=== PATIENT | male | born 1945 | race Caucasian/White ===

== ENCOUNTER 2016-09-21 14:58 | Inpatient (IN) | payer MEDICARE ==
[2016-09-21] MEDS ORDERED: methylPREDNISolone SOD SUCC* 125 MG 2 ML VIAL IV ONE (16:51)
[2016-09-21] MEDS: Albuterol/Ipratropium NEB.SOL* Albuterol 2.5 MG/Ipratropium 0.5 MG 3 ML INH SCH ×3 (17:18→18:05)
[2016-09-21 17:27] LABS: Hematocrit 19 % (42-52); Mean Corpuscular HGB Conc 30 g/dl (31-36); Mean Corpuscular Hemoglobin 22 pg (27-31); Mean Corpuscular Volume 74 fL (80-94); Mean Platelet Volume 7 um3 (7.4-10.4); Red Blood Count 2.53 10^6/ul (4.0-5.4); Red Cell Distribution Width 18 % (10.5-15); White Blood Count 13.7 10^3/ul (3.5-10.8)
[2016-09-21 17:32] LABS: Add Diff/Slide Review? Slide Review Added; Comments Flag Yes
[2016-09-21 17:34] LABS: Hemoglobin 5.6 g/dl (14.0-18.0)
[2016-09-21 17:48] LABS: Albumin 3.1 g/dL (3.2-5.2); BUN/Creatinine Ratio 28.7 (8-20); C Reactive Protein 4.56 mg/L (< 5.00); Calcium 8.8 mg/dL (8.6-10.3); EGFR African American 101.5 (>60); EGFR Non-African American 78.9 (>60); Globulin 4.7 g/dL (2-4); Potassium 4.6 mmol/L (3.5-5.0); Total Bilirubin 0.4 mg/dL (0.2-1.0); Total Protein 7.8 g/dL (6.4-8.9)
[2016-09-21 17:49] LABS: Hypochromasia 3+; Macrocytosis 1+; Microcytosis 1+; Polychromasia 1+
[2016-09-21 17:53] LABS: Troponin I 0.1 ng/mL (<0.04)
--- NOTE | 2016-09-21 18:28 | RAD ---
INDICATION: Dyspnea. COPD on home oxygen. COMPARISON: May 17, 2016 TECHNIQUE: Dual energy PA and routine lateral views of the chest were obtained. REPORT: Elevated lung volumes and moderately coarse interstitial markings as well as peripheral and upper lung zone rarefaction. Peripheral thickened intralobular septa bilaterally. Asymmetric alveolar and interstitial opacity at the RIGHT lung base without volume loss. Small pleural effusions. Negative for pneumothorax. Negative for cardiomegaly. Mildly prominent and ill-defined central pulmonary vasculature. IMPRESSION: The constellation of findings is most suggestive of mildly asymmetric interstitial pulmonary edema superimposed on chronic obstructive pulmonary disease. Inflammatory infiltrate at the RIGHT lung base is not excluded.
[2016-09-21] MEDS ORDERED: Acetaminophen TAB* 325 MG PO PRN (18:53)
[2016-09-21] MEDS ORDERED: Acetaminophen TAB* 325 MG PO ONE (18:56)
[2016-09-21] MEDS ORDERED: Acetaminophen TAB* 325 MG ONE (18:59)
[2016-09-21] MEDS ORDERED: Furosemide IV* 10 MG/ML 10 ML VIAL (100 MG) IV SCH (19:22)
[2016-09-21] MEDS ORDERED: Pantoprazole IV* 40 MG IV ONE (19:30)
[2016-09-21 19:41] LABS: Urine Bilirubin Negative (Negative); Urine Glucose Negative (Negative); Urine Nitrite Negative (Negative)
[2016-09-21] MEDS ORDERED: Furosemide IV* 10 MG/ML 2 ML VIAL (20 MG) IV SCH (20:12)
--- NOTE | 2016-09-21 20:24 | ED ---
Pardeep Munoz Adam, scribed for Uri Angulo MD on 09/21/16 at 1701 . Shortness of Breath - HPI Summary HPI Summary: Pt is a 71 year old male presenting with SOB for the past 2 days. He has COPD and is on o2 at home. He also reports a productive cough bringing up phlegm, as well as chills. He denies any CP or edema. Additional PMHx of HTN, DM, and DVT. Surgical Hx of appy and intestinal resection. FMHx of DM. - History of Current Complaint Chief Complaint: EDShortnessOfBreath Time Seen by Provider: 09/21/16 16:51 Hx Obtained From: Patient Onset/Duration: Gradual Onset, Lasting Days, Still Present Timing: Constant Current Severity: Moderate Dyspnea At: Rest Aggrevating Factors: Nothing Alleviating Factors: Nothing Associated Signs & Symptoms: Cough (Productive), Wheezing, Chills - Allergy/Home Medications Allergies/Adverse Reactions: Allergies Allergy/AdvReac Type Severity Reaction Status Date / Time No Known Allergies Allergy Verified 05/17/16 18:43 PMH/Surg Hx/FS Hx/Imm Hx Endocrine/Hematology History: Reports: Hx Diabetes - glucose between 100-130 Denies: Hx Anticoagulant Therapy Cardiovascular History: Reports: Hx Deep Vein Thrombosis - 20 years ago, Hx Hypertension - lisinopril Denies: Hx Congestive Heart Failure, Hx Myocardial Infarction, Hx Pacemaker/ ICD Respiratory History: Reports: Hx Chronic Obstructive Pulmonary Disease (COPD), Hx Pneumonia GI History: Denies: Hx Gastroesophageal Reflux Disease History: Denies: Hx Acute Renal Failure, Hx Chronic Renal Failure Musculoskeletal History: Reports: Hx Arthritis, Hx Back Problems Sensory History: Reports: Hx Contacts or Glasses Opthamlomology History: Reports: Hx Contacts or Glasses Neurological History: Denies: Hx Headaches Psychiatric History: Reports: Other Psychiatric Issues/Disorders - sometimes feels anxious/depressed - no formal dx - Surgical History Surgery Procedure, Year, and Place: Appendectomy (2011). Intestinal resection ( 2011) Infectious Disease History: No Infectious Disease History: Denies: Hx Hepatitis, Hx Human Immunodeficiency Virus (HIV), Hx of Known/ Suspected MRSA, Traveled Outside the [place] in Last 30 Days - Family History Known Family History: Positive: Diabetes - Social History Occupation: Retired Lives: With Family - Alcohol Use: None Hx Substance Use: No Substance Use Type: Reports: None Hx Tobacco Use: Yes Smoking Status (MU): Former Smoker Type: Cigarettes Amount Used/How Often: 3 PPD Have You Smoked in the Last Year: Yes Review of Systems Positive: Chills Negative: Chest Pain Positive: Shortness Of Breath, Cough Negative: Edema All Other Systems Reviewed And Are Negative: Yes Physical Exam - Summary Physical Exam Summary: VITAL SIGNS: Reviewed. GENERAL: Patient is a well developed and nourished who is lying comfortable in the stretcher. Patient is not in any acute respiratory distress. HEAD AND FACE: No signs of trauma. No ecchymosis, hematomas or skull depressions. No sinus tenderness. EYES: PERRLA, EOMI x 2, No injected conjunctiva, no nystagmus. EARS: Hearing grossly intact. Ear canals and tympanic membranes are within normal limits. MOUTH: Oropharynx within normal limits. NECK: Supple, trachea is midline, no adenopathy, no JVD, no carotid bruit, no c- spine tenderness, neck with full ROM. CHEST: Symmetric, no tenderness at palpation LUNGS: Coarse breath sounds. No crackles CVS: Regular rate and rhythm, S1 and S2 present, positive ESM 4/6 ABDOMEN: Soft, non-tender. No signs of distention. No rebound no guarding, and no masses palpated. Bowel sounds are normal. Rectal exam with normal sphincter tone, no melena or gross blood. EXTREMITIES: FROM in all major joints, no edema, no cyanosis or clubbing. NEURO: Alert and oriented x 3. No acute neurological deficits. Speech is normal and follows commands. SKIN: Dry and warm Triage Information Reviewed: Yes Vital Signs On Initial Exam: Initial Vitals Temp Pulse Resp BP Pulse Ox 98.9 F 105 20 111/48 100 09/21/16 15:00 09/21/16 15:00 09/21/16 15:00 09/21/16 15:00 09/21/16 15:00 Vital Signs Reviewed: Yes Diagnostics - Vital Signs Vital Signs Temp Pulse Resp BP Pulse Ox 09/21/16 16:33 99 22 99 09/21/16 16:31 141/75 09/21/16 16:00 98.9 F 94 20 102/48 97 09/21/16 15:00 98.9 F 105 20 111/48 100 - Laboratory Lab Results: Lab Results 09/21/16 09/21/1609/21/17 Range/Units 17:14 17:14 17:14 WBC 13.7 H (3.5-10.8) 10^3/ul RBC 2.53 L (4.0-5.4) 10^6/ul Hgb 5.6 L* (14.0-18.0) g/dl Hct 19 L (42-52) % MCV 74 L (80-94) fL MCH 22 L (27-31) pg MCHC 30 L (31-36) g/dl RDW 18 H (10.5-15) % Plt Count 479 H (150-450) 10^3/ul MPV 7 L (7.4-10.4) um3 Neut % (Auto) 69.3 (38-83) % Lymph % (Auto) 17.3 L (25-47) % Avery % (Auto) 11.7 H (1-9) % Eos % (Auto) 1.3 (0-6) % Baso % (Auto) 0.4 (0-2) % Absolute Neuts (auto) 9.5 H (1.5-7.7) 10^3/ul Absolute Lymphs (auto) 2.4 (1.0-4.8) 10^3/ul Absolute Monos (auto) 1.6 H (0-0.8) 10^3/ul Absolute Eos (auto) 0.2 (0-0.6) 10^3/ul Absolute Basos (auto) 0.1 (0-0.2) 10^3/ul Absolute Nucleated RBC 0.02 10^3/ul Nucleated RBC % 0.1 Normal RBC Morphology Not Reportable Polychromasia 1+ Hypochromasia 3+ Microcytosis 1+ Macrocytosis 1+ INR (Anticoag Therapy) (0.89-1.11) APTT (26.0-36.3) seconds Sodium 132 L (133-145) mmol/L Potassium 4.6 (3.5-5.0) mmol/L Chloride 101 (101-111) mmol/L Carbon Dioxide 25 (22-32) mmol/L Anion Gap 6 (2-11) mmol/L BUN 27 H (6-24) mg/dL Creatinine 0.94 (0.67-1.17) mg/dL Est GFR ( Amer) 101.5 (>60) Est GFR (Non-Af Amer) 78.9 (>60) BUN/Creatinine Ratio 28.7 H (8-20) Glucose 161 H (70-100) mg/dL Lactic Acid 1.7 (0.5-2.0) mmol/L Calcium 8.8 (8.6-10.3) mg/dL Total Bilirubin 0.40 (0.2-1.0) mg/dL AST 18 (13-39) U/L ALT 16 (7-52) U/L Alkaline Phosphatase 59 (34-104) U/L Total Creatine Kinase 57 (10-223) U/L Troponin I Pending C-Reactive Protein 4.56 (< 5.00) mg/L Total Protein 7.8 (6.4-8.9) g/dL Albumin 3.1 L (3.2-5.2) g/dL Globulin 4.7 H (2-4) g/dL Albumin/Globulin Ratio 0.7 L (1-3) 09/21/16 Range/Units 17:14 WBC (3.5-10.8) 10^3/ul RBC (4.0-5.4) 10^6/ul Hgb (14.0-18.0) g/dl Hct (42-52) % MCV (80-94) fL MCH (27-31) pg MCHC (31-36) g/dl RDW (10.5-15) % Plt Count (150-450) 10^3/ul MPV (7.4-10.4) um3 Neut % (Auto) (38-83) % Lymph % (Auto) (25-47) % Avery % (Auto) (1-9) % Eos % (Auto) (0-6) % Baso % (Auto) (0-2) % Absolute Neuts (auto) (1.5-7.7) 10^3/ul Absolute Lymphs (auto) (1.0-4.8) 10^3/ul Absolute Monos (auto) (0-0.8) 10^3/ul Absolute Eos (auto) (0-0.6) 10^3/ul Absolute Basos (auto) (0-0.2) 10^3/ul Absolute Nucleated RBC 10^3/ul Nucleated RBC % Normal RBC Morphology Polychromasia Hypochromasia Microcytosis Macrocytosis INR (Anticoag Therapy) 0.98 (0.89-1.11) APTT 26.7 (26.0-36.3) seconds Sodium (133-145) mmol/L Potassium (3.5-5.0) mmol/L Chloride (101-111) mmol/L Carbon Dioxide (22-32) mmol/L Anion Gap (2-11) mmol/L BUN (6-24) mg/dL Creatinine (0.67-1.17) mg/dL Est GFR ( Amer) (>60) Est GFR (Non-Af Amer) (>60) BUN/Creatinine Ratio (8-20) Glucose (70-100) mg/dL Lactic Acid (0.5-2.0) mmol/L Calcium (8.6-10.3) mg/dL Total Bilirubin (0.2-1.0) mg/dL AST (13-39) U/L ALT (7-52) U/L Alkaline Phosphatase (34-104) U/L Total Creatine Kinase (10-223) U/L Troponin I C-Reactive Protein (< 5.00) mg/L Total Protein (6.4-8.9) g/dL Albumin (3.2-5.2) g/dL Globulin (2-4) g/dL Albumin/Globulin Ratio (1-3) Result Diagrams: 09/21/16 17:14 09/21/16 17:14 Lab Statement: Any lab studies that have been ordered have been reviewed, and results considered in the medical decision making process. - Radiology CXR Radiology Interpretation Completed By: Radiologist - IMPRESSION: The constellation of findings is most suggestive of mildly asymmetric interstitial pulmonary edema superimposed on chronic obstructive pulmonary disease. Inflammatory infiltrate at the RIGHT lung base is not excluded. - EKG 15:05 Cardiac Rate: NL - 99 BPM EKG Rhythm: Sinus Rhythm EKG Interpretation: No ST elevations - Additional Comments Diagnostic Additional Comments: Hemoglobin - 5.6 Troponin I - 0.10 Antibody Screen - Negative Course/Dx - Course Course Of Treatment: Pt is a 71 year old male presenting with SOB for the past 2 days. He has COPD and is on o2 at home. He also reports a productive cough bringing up phlegm, as well as chills. He denies any CP or edema. Additional PMHx of HTN, DM, and DVT. Surgical Hx of appy and intestinal resection. FMHx of DM. BW is WNL except for WBC of 13.7, Hgb of 5.6, Hct of 19, and platelets of 479. Sodium is 132, glucose 161, trop 0.10, BNP 345. EKG shows a sinus rhythm without ST elevations. CXR shows bilateral hyperinflation of the lungs without infiltrates. In the ED course the pt was given a duoneb given that he was slightly wheezy secondary to COPD. Seeing as the pt has symptomatic anemia I performed a rectal exam which showed no melena and no red blood from the rectum. Pt will be given 2 units of blood. He continues to be hemodynamically stable and A&Ox3. I discussed my physical exam and findings with Dr. Cole. The pt will be admitted to the hospitalist services. Assessment/Plan: Guaiac positive. - Diagnoses Differential Diagnosis/HQI/PQRI: Positive: Bronchitis, CHF, Pneumonia, Other - Anemia Provider Diagnoses: Symptomatic anemia, COPD (chronic obstructive pulmonary disease), GI bleed - Physician Notifications Discussed Care of Patient With: Dr. Cole at 18:12. Patient will be admitted. Discharge - Discharge Plan Condition: Stable Disposition: ADMITTED TO [facility] The documentation as recorded by the Pardeep gregory Adam accurately reflects the service I personally performed and the decisions made by me, Uri Angulo MD.
[2016-09-21] MEDS ORDERED: Insulin GLARGINE(*) 1 UNITS UNIT SUBCUT SCH (21:00)
[2016-09-21 21:03] LABS: Hematocrit 19 % (42-52); Mean Corpuscular HGB Conc 30 g/dl (31-36); Mean Corpuscular Hemoglobin 23 pg (27-31); Mean Corpuscular Volume 74 fL (80-94); Mean Platelet Volume 7 um3 (7.4-10.4); Red Blood Count 2.51 10^6/ul (4.0-5.4); Red Cell Distribution Width 17 % (10.5-15); White Blood Count 11.5 10^3/ul (3.5-10.8)
[2016-09-21 21:05] LABS: Add Diff/Slide Review? Slide Review Added; Comments Flag Yes
[2016-09-21 21:06] LABS: Hemoglobin 5.7 g/dl (14.0-18.0)
[2016-09-21] MEDS ORDERED: Pantoprazole IV* 40 MG ONE (21:25)
[2016-09-21] MEDS ORDERED: Dextrose 50% Syringe 50 ML* 25 GM/50 ML SYRINGE IV PUSH PRN (21:28)
--- NOTE | 2016-09-21 21:44 | HP ---
ADMISSION HISTORY AND PHYSICAL: DATE OF ADMISSION: 09/21/16 PRIMARY CARE PROVIDER: [place] in [place]; LEONOR Ribera ADMITTING PROVIDER: LEONOR Watters SUPERVISING PHYSICIAN: Dr. Rojas Cole* (dictated by LEONOR Watters). CONSULTING UROLOGIST PHYSICIAN: Dr. Donald Glover. CHIEF COMPLAINT: Shortness of breath. HISTORY OF PRESENT ILLNESS: This is a 71-year-old gentleman with a history of COPD as well as insulin dependent diabetes, peripheral vascular disease, GERD, and hypertension who presented to the emergency department with complaints of shortness of breath. He has had a recent cold. He was blaming his symptoms on his URI. He has had an occasional cough. He has been using his albuterol inhaler frequently, but this has not been relieving his feelings of shortness of breath. He has been afebrile at home and denies any associated abdominal pain, nausea, or vomiting. Denies melena or hematochezia. The patient was admitted in March of this past year with similar symptoms. He was complaining of melena at that time and had been taking frequent NSAIDs. Hemoglobin was 5.5 at the time of admission and he was subsequently admitted with a GI bleed. He was transfused 2 units of packed red blood cells and EGD showed multiple erosions at that time. The patient is unable to give a clear history as to whether he has been reliably taking PPI since that admission, but does state that he has not been using any NSAIDs. The patient was noted to be grossly anemic in the emergency department with a hemoglobin of 5.6. Rectal exam performed by emergency department provider did not demonstrate any gross melena, but stool is positive for occult blood. Hospitalist group subsequently requested to admit. PAST MEDICAL HISTORY: 1. Insulin dependent diabetes. 2. Peripheral vascular disease. 3. Hypertension. 4. COPD. 5. GERD. PAST SURGICAL HISTORY: Bowel resection for what sounds like an ischemic bowel, but the patient is unclear. HOME MEDICATIONS: The patient is unable to provide an accurate list of medications, but states that the medications on a file from March should still be accurate and are as follows: 1. Albuterol inhaler 1 puff inhaled q.4 hours as needed for shortness of breath. 2. Vitamin C 500 mg p.o. daily. 3. Folic acid 1 mg p.o. daily. 4. Lasix 20 mg p.o. daily. 5. Lantus 10 units subcu nightly. 6. Victoza 0.6 mg subcu daily. 7. Lisinopril 5 mg p.o. daily. 8. Omeprazole 20 mg p.o. daily. 9. Actos 45 mg p.o. daily. 10. Potassium chloride 20 mEq p.o. daily. 11. Spiriva 1 capsule inhaled daily. 12. Tramadol 50 mg p.o. daily. 13. Glipizide 10 mg p.o. b.i.d. SOCIAL HISTORY: The patient has a greater than a 100 pack year smoking history , quit about a year ago. Denies any regular alcohol consumption. Lives at home with his and is retired. REVIEW OF SYSTEMS: As noted above in the HPI and otherwise negative. PHYSICAL EXAMINATION GENERAL: This is an elderly gentleman, in no acute distress accompanied by his . He provides a limited history. VITAL SIGNS: Temperature 98.9 degrees Fahrenheit, pulse 105 beats per minute, respiratory rate 20 per minute, oxygen saturation 100% on room air, blood pressure 111/48 mmHg. HEENT: Head is normocephalic, atraumatic. Moist mucous membranes. RESPIRATORY: Lungs are clear to auscultation. There is reduced breath sounds appreciated in all lung green but no rhonchi or wheezing. CARDIOVASCULAR: Heart has a regular rate and rhythm. There is a faint murmur appreciated but sounds consistent with perhaps aortic stenosis. ABDOMEN: Soft and nontender to palpation. EXTREMITIES: No lower extremity edema. SKIN: Limited exam shows no concerning rashes or lesions. PSYCHE: The patient is alert and appropriately oriented. DIAGNOSTIC STUDIES/LABORATORY DATA: CBC shows a white blood cell count of 13, 700, hemoglobin of 5.6 g/dL and an MCV of 74 with a platelet count of 479,000. INR of 0.98, PTT of 26.7. Comprehensive metabolic panel shows a sodium of 132 mmol/L, potassium 4.6, BUN of 27, creatinine of 0.94. Random glucose of 161 mg/dL. Lactic acid normal at 1.7. Troponin elevated at 0.1. BNP slightly elevated at 345. IMAGING: Chest x-ray shows stigmata of COPD, questionable right basilar infiltrates. EKG shows a normal sinus rhythm without ischemic changes. ASSESSMENT AND PLAN: This is a 71-year-old gentleman with history of prior gastrointestinal bleed who presents with shortness of breath with severe anemia that appears to be subacute in nature. He also has history of chronic obstructive pulmonary disease, peripheral vascular disease, insulin dependent diabetes, hypertension, and gastroesophageal reflux disease. The patient will be subsequently admitted to the hospital for suspected GI bleed. 1. GI bleed - based on his MCV and relatively few symptoms with severe anemia suspect that this is potentially chronic or subacute in nature. Perhaps, the patient has been continuing to bleed since his last admission in March. We will plan to transfuse 2 units of packed red blood cells at this time. We will diurese with Lasix between and after units. We will check serial hemoglobins overnight. Contacted information systems manager, Dr. Glover, who will plan on repeating EGD tomorrow which will probably be tomorrow afternoon. We will continue clear liquids at this time. Plan on making him NPO after breakfast. 2. Elevated troponin. Assume this is demand related to his severe anemia. We will trend troponins. He has no ischemic changes noted on EKG. He is not complaining of any chest pain at this time. No known history of coronary artery disease, but does have a history of peripheral vascular disease. 3. Chronic obstructive pulmonary disease - no evidence of acute exacerbation. We will continue with typical inhaled medications. 4. Hypertension. We will hold home antihypertensives at this time in the setting of GI bleed. 5. Insulin dependent diabetes - we will continue typical Lantus, cover for additional hyperglycemia with sliding scale Humalog. 6. Code status. The patient is DNR/DNI. He has signed a MOLST form from September of last year. 7. Surrogate decision maker is his . 8. DVT prophylaxis. We will place on SCDs. Chemical prophylaxis is contraindicated in this setting of bleeding. LEONOR WATTERS CC: IRINA Rangel; LEONOR Ribera* [id number]/[facility] #: [id number] MTDD
[2016-09-21] MEDS: Pantoprazole IV* 80 MG in NS 0.9% 250 ML* 250 ML IVPB SCH (22:06)
[2016-09-21] MEDS ORDERED: Furosemide IV* 10 MG/ML 10 ML VIAL (100 MG) IV ONE (22:58)
[2016-09-21] MEDS ORDERED: Nitroglycerin 2% OINT* 1 GM PAK TOPICAL ONE (22:59)
[2016-09-21] MEDS ORDERED: Morphine INJ* 2 MG/ML 1 ML SYRINGE IV ONE (22:59)
[2016-09-21] MEDS ORDERED: Furosemide IV* 10 MG/ML VIAL (40 MG) ONE (23:01)
[2016-09-21] MEDS ORDERED: Morphine INJ* 2 MG/ML 1 ML SYRINGE ONE (23:01)
[2016-09-21] MEDS ORDERED: Nitroglycerin 2% OINT* 1 GM PAK ONE (23:03)
--- NOTE | 2016-09-21 23:10 | PN ---
Progress Note - Progress Note Note: Nursing reports sudden onset of SOB at end of 1st unit pRBCs. Has not yet received furosemide 20mg IV as ordered. Upon arrival, Mr Kent is sitting up in bed with respiratory rate in the mid- to high 20s, saO2 mid-90s. He denies chest pain, sweats, palpitations, light- headedness, or other issues. gen: elderly white male in mild respiratory distress, AA&O to PPS Lungs: mild bibasilar cellophane crackles, mild use of accessory muscles CV: RRR abdomen: SNTND assessment: plan acute volume overload 2nd blood transfusion : 1" nitropaste : 2mg morphine x1 now : 40mg IV furosemide x1 now replacing existing order for 20mg : close monitoring of respiratory status & blood pressure requested of nursing
[2016-09-22] MEDS ORDERED: LORazepam INJ* 2 MG/ML 1 ML VIAL ONE
[2016-09-22] MEDS: Insulin LISPRO* 1 UNITS UNIT SUBCUT SCH ×4 (00:35→17:42)
[2016-09-22 01:36] LABS: Hematocrit 24 % (42-52); Hemoglobin 7.4 g/dl (14.0-18.0); Mean Corpuscular HGB Conc 31 g/dl (31-36); Mean Corpuscular Hemoglobin 23 pg (27-31); Mean Corpuscular Volume 75 fL (80-94); Mean Platelet Volume 7 um3 (7.4-10.4); Red Blood Count 3.22 10^6/ul (4.0-5.4); Red Cell Distribution Width 18 % (10.5-15)
[2016-09-22] MEDS ORDERED: Furosemide IV* 10 MG/ML VIAL (40 MG) IV ONE (02:00)
[2016-09-22] MEDS: Pantoprazole IV* 80 MG in NS 0.9% 250 ML* 250 ML IVPB SCH (05:41)
[2016-09-22 07:22] LABS: Hematocrit 26 % (42-52); Hemoglobin 8.2 g/dl (14.0-18.0); Mean Corpuscular HGB Conc 32 g/dl (31-36); Mean Corpuscular Hemoglobin 24 pg (27-31); Mean Corpuscular Volume 76 fL (80-94); Mean Platelet Volume 7 um3 (7.4-10.4); Red Blood Count 3.45 10^6/ul (4.0-5.4); Red Cell Distribution Width 17 % (10.5-15); White Blood Count 12.6 10^3/ul (3.5-10.8)
[2016-09-22 07:43] LABS: BUN/Creatinine Ratio 27.7 (8-20); EGFR African American 101.5 (>60); EGFR Non-African American 78.9 (>60); Potassium 4.6 mmol/L (3.5-5.0)
[2016-09-22] MEDS ORDERED: Spiriva Inhaler DEVICE* 1 EACH DEVICE INH ONE (09:00)
[2016-09-22] MEDS ORDERED: Tiotropium CAP.INH* CAP.INH/18 MCG INH SCH (09:00)
--- NOTE | 2016-09-22 11:41 | PN ---
Subjective Date of Service: 09/22/16 Interval History: This is a 71 yo gentleman with a h/o COPD who presented yesterday with c/o SOB. Hgb 5.5 at admission, stool positive for occult blood. Patient was transfused 2U PRBCs overnight. He had flash pulm edema after the 1st unit, treated with nitro, Lasix and morphine and it resolved quickly. He tolerated the 2nd unit well. He reports that he is feeling well this am. His dyspnea has resolves and he very much would like to be discharged home. He denies abdominal pain, n/v, melena, hematachezia. Objective Active Medications: Acetaminophen (Tylenol Tab*) 650 mg PO Q4H PRN PRN Reason: FEVER/PAIN Dextrose (D50w Syringe 50 Ml*) 12.5 gm IV PUSH .FOR FS < 60 - SS PRN PRN Reason: FS < 60 Pantoprazole Sodium 80 mg/ (Sodium Chloride) 250 mls @ 25 mls/hr IVPB Q10H RAMEZ PRN Reason: Protocol Insulin Glargine (Lantus(*)) 10 units SUBCUT BEDTIME [facility] Last Admin: 09/21/16 21:44 Dose: 10 unit Insulin Human Lispro (Humalog*) 0 - 5 units SUBCUT ACHS RAMEZ PRN Reason: Protocol Last Admin: 09/22/16 08:20 Dose: Not Given Tiotropium [place] (Spiriva Cap.Inh*) 1 cap INH DAILY [facility] Last Admin: 09/22/16 09:22 Dose: 1 cap.inh Vital Signs: Temp Pulse Resp BP Pulse Ox 97.2 F 77 18 125/56 100 09/22/16 07:11 09/22/16 07:11 09/22/16 07:11 09/22/16 07:11 09/22/16 07:11 Oxygen Devices in Use Now: Nasal Cannula Appearance: Elderly gentleman in NAD Neck: NL Appearance and Movements; NL JVP Respiratory: Symmetrical Chest Expansion and Respiratory Effort, Clear to Auscultation Cardiovascular: NL Sounds; No Murmurs; No JVD, RRR Abdominal: NL Sounds; No Tenderness; No Distention Extremities: No Edema Skin: No Rash or Ulcers Neurological: Alert and Oriented x 3 Result Diagrams: 09/22/16 07:01 09/22/16 06:56 Additional Lab and Data: Laboratory Tests 09/21/16 09/21/16 09/22/16 17:14 20:55 01:27 Hgb 5.6 L* 5.7 L* 7.4 L 09/22/16 07:01 Hgb 8.2 L Assess/Plan/Problems-Billing Assessment: This is a 71 yo gentleman is COPD, IDDM, PVD, GERD, HTN and a h/o of prior GI bleed Mar 2016 who presented with c/o SOB with Hgb 5.5 g/dl with heme positive stool. Admitted for GI bleed. - Patient Problems (1) GI bleed Comment: With symptomatic anemia Patient transfused 2U PRBCs overnight with appropriate response in Hgb No c/o melena or hematachezia Pending EGD with Dr Glover this afternoon Suspect bleeding has been slow based on low MCV and the relatively few symptoms he had with profound anemia Continue Protonix (2) Pulmonary edema Comment: Resolved After 1st unit of PRBCs (3) Demand ischemia Comment: Secondary to anemia No evidence of ACS (4) COPD (chronic obstructive pulmonary disease) Comment: No acute exacerbation (5) PVD (peripheral vascular disease) (6) Hypertension Comment: Normotensive Antihypertensives being held in the setting of acute GI bleed (7) Type 2 diabetes mellitus Comment: Relatively well controlled Cont Lantus and SS Humalog Status and Disposition: Pending EGD for this afternoon. Patient is threatening to leave AMA at this time. Disposition will depend on EGD results.
--- NOTE | 2016-09-22 12:30 | CONS ---
CONSULTATION REPORT: DATE OF CONSULT: 09/22/16 REASON FOR CONSULTATION: GI bleed, anemia, history of gastric erosions. NARRATIVE: Mr. Kent is a 71-year-old gentleman with a history of COPD, peripheral vascular disease and hypertension. He presented with shortness of breath and fatigue yesterday and was found to have a hemoglobin of 5.5. He does not report any visible rectal bleeding or melena, but on evaluation was found to be guaiac positive. The patient was previously admitted in the fall of 2016 for GI bleed and a similar presentation and a low hemoglobin. He at that time was using NSAIDs. He underwent an upper endoscopy, which showed multiple gastric erosions which were felt to be the etiology for his bleeding. He was told not to take NSAIDs and to take omeprazole and currently he states he has not been taking NSAIDs, but is a bit vague whether he has been on omeprazole. He also admits to about a 20 to 30-pound weight loss in the last year. He believes he had a colonoscopy many years ago and was told everything was normal. PAST MEDICAL HISTORY: Does include diabetes, peripheral vascular disease, hypertension, COPD, and GERD. SOCIAL HISTORY: He is a former cigarette smoker. PAST SURGICAL HISTORY: Includes bowel resection many years ago. He is a bit vague about it, but it sounds as though he might have had a vascular event. We do not have records of that. FAMILY HISTORY: Negative for any known GI malignancies, although he states that his father from complications from anemia, but is unclear as to the etiology. MEDICATIONS: His outpatient medications as far as we know include: 1. Albuterol inhaler. 2. Lasix. 3. Lantus. 4. Victoza. 5. Lisinopril. 6. Omeprazole (the patient unclear if he is on this). 7. Actos. 8. Potassium. 9. Spiriva. 10. Tramadol. 11. Glipizide. REVIEW OF SYSTEMS: He denies any nausea, vomiting, hematemesis, back pain. PHYSICAL EXAM: He is an elderly gentleman, breathing comfortably and in no acute distress. His temperature is 98.1, blood pressure is 115/50, heart rate is 85 and regular. He seems slightly pale. Lungs sound clear anteriorly. Cardiac exam reveals a regular rhythm without murmur. Abdomen is soft without tenderness or organomegaly. LABORATORY DATA: Initial data include a hemoglobin of 5.6. After 2 units of packed red blood cells, it is 8.2; MCV of 76, BUN on admission of 26; creatinine of 0.94. IMPRESSION AND PLAN: A 71-year-old gentleman presenting with microcytic anemia and guaiac-positive stool. He was previously admitted with similar complaints in the fall, at which time gastric erosions were identified, thought to be related to NSAIDs, which he has not been on, although it is unclear whether he has been compliant on his omeprazole. Possible causes for GI bleeding would include recurrence of the gastric erosions or lower GI causes such as polyps, malignancies, AVMs. This was carefully discussed with the patient. I would advocate an upper endoscopy today and will plan on performing that. I would also strongly suggest a colonoscopy either during this admission or soon after discharge and that was stressed with the patient. He became very agitated, stating that he wants to be discharged as soon as possible and is not willing to stay for a colonoscopy even after discussing the fact that colon cancer could present in this fashion. Hopefully, he will follow up as an outpatient and I did stress that. CC: LEONOR Ribera, [place], [place]* [id number]/CPS #: [id number] MTDD
[2016-09-22] MEDS ORDERED: Pantoprazole IV* 80 MG in NS 0.9% 250 ML* 250 ML IVPB SCH (13:00)
[2016-09-22 15:19] LABS: Hematocrit 25 % (42-52); Hemoglobin 7.7 g/dl (14.0-18.0)
[2016-09-22] MEDS ORDERED: Midazolam* 1 MG/ML 10 ML VIAL (10 MG) ONE (16:04)
[2016-09-22] MEDS ORDERED: fentaNYL* 50 MCG/ML 2 ML VIAL (100 MCG VIAL) ONE (16:04)
[2016-09-22 17:41] VITALS: BP 116/54
--- NOTE | 2016-09-23 12:23 | PRO ---
DATE OF PROCEDURE: 09/22/16 - ROOM #434 PROCEDURE: Gastroscopy. MEDICINES USED: Versed 6 mg IV and fentanyl 50 mcg IV. NARRATIVE: This is a 71-year-old gentleman who was admitted yesterday for blood in the stool and anemia. The patient was feeling shortness of breath and somewhat weak. He presented to the emergency room where he was found to be anemic. He was also guaiac positive. He had a similar presentation in the fall of 2015 where an upper endoscopy demonstrated gastric erosions. He has been off of NSAIDs, which was thought to be the etiology for that. Due to these issues, upper endoscopy is being carried out. PROCEDURE IN DETAIL: After the procedure was discussed with the patient, risks and benefits were outlined, written consent was obtained. The patient was placed in the left lateral decubitus position and conscious sedation was administered. A video diagnostic gastroscope was inserted orally and advanced very carefully into the esophagus. The esophagus, stomach, and duodenum to the second to third portion were well visualized. The patient tolerated the procedure well and there were no immediate complications. FINDINGS: The esophagus was normal. There was no evidence of erosive change or stricture. The stomach was entered. Upon retroflexion, there was no evidence of a hiatal hernia. The gastric mucosa was normal without any ulceration or inflammatory change. The pylorus was normal and patent. The duodenal bulb was normal and second to third portion of the duodenum was normal with a normal folding pattern. CONCLUSION: Normal upper endoscopy. RECOMMENDATION: The patient certainly would need a colonoscopy and that was emphasized with him. He likely can be discharged at this point, but with careful followup with arrangements for a colonoscopy. CC: LEONOR Ribera* [id number]/[place] #: [id number] MTDTammy
--- NOTE | 2016-09-23 12:49 | DS ---
DISCHARGE SUMMARY: DATE OF ADMISSION: 09/21/16 DATE OF DISCHARGE: 09/22/16 PRIMARY CARE PROVIDER: Claire AREVALO and LEONOR Ribera. CONSULTING MATERIAL DAMAGE ADJUSTER: Dr. Donald Glover. DISCHARGING PROVIDER: LEONOR Watters. SUPERVISING PHYSICIAN: Dr. Rojas Cole.* (DICTATED BY LEONOR WATTERS) PRIMARY DISCHARGE DIAGNOSES: 1. Suspected gastrointestinal bleed. 2. Symptomatic anemia. 3. Pulmonary edema - resolved. SECONDARY DISCHARGE DIAGNOSES: 1. Chronic obstructive pulmonary disease without acute exacerbation. 2. Insulin-dependent diabetes. 3. Peripheral vascular disease. 4. Hypertension. 5. Gastroesophageal reflux disease. DISCHARGE MEDICATIONS: (The patient was unable to verify his home medications. No changes were made to home medications during his hospitalization). 1. Albuterol one puff inhaled q. 4 hours as needed for shortness of breath. 2. Vitamin C 500 mg p.o. daily. 3. Folic acid 1 mg p.o. daily. 4. Lasix 20 mg p.o. daily. 5. Garlic 1000 mg p.o. daily. 6. Lantus 10 units subcu nightly. 7. Victoza 0.6 subcu daily with meals. 8. Lisinopril 5 mg p.o. daily. 9. Fish oil 1000 mg p.o. daily. 10. Omeprazole 20 mg p.o. twice daily. 11. Actos 45 mg p.o. daily. 12. Potassium chloride 20 mEq p.o. daily. 13. Spiriva one capsule inhaled daily. 14. Tramadol 50 mg p.o. q. 8 hours as needed for pain. 15. Glipizide 10 mg p.o. b.i.d. HOSPITAL IMAGIN. Chest x-ray shows mild interstitial edema and stigmata of COPD, possible subtle infiltrate at the right lung base. 2. EKG shows sinus rhythm without ischemic changes. HOSPITAL COURSE: This is a 71-year-old gentleman with history of COPD, peripheral vascular disease, hypertension, GERD, and insulin-dependent diabetes , who presented to the emergency department with complaints of shortness of breath. The patient's symptoms started approximately 2 days prior to him coming to the emergency department. He has had recent cold symptoms and blamed his symptoms of dyspnea on his upper respiratory infection. He had been using his albuterol inhaler frequently without relief of his symptoms. When he reached the emergency department, hemoglobin was noted to be 5.6 g/dL. The patient was hemodynamically stable. The patient denied any complaints of abdominal pain, nausea, or vomiting. No melena or hematochezia. Rectal exam was performed by emergency department physician without evidence of gross melena but stool was positive for occult blood. Initial troponin was mildly elevated at 0.10 and the patient was subsequently admitted for GI bleed with concern for demand ischemia. The patient was admitted in March of this past year with a very similar picture. He did have complaints of melena at that time and had been taking multiple doses of NSAIDs for his osteoarthritis. He underwent EGD at that time , which showed multiple erosions and the patient was advised against continued use of NSAIDs and prescribed a PPI at discharge. The patient is difficult to get an accurate history from, but he believes that he has been on a PPI since discharge and he has been compliant with avoiding NSAIDs. Troponins were trended overnight and fell from 0.10 to 0.07, and the patient had no complaints of chest pain. He was subsequently transfused 2 units of packed red blood cells, but unfortunately after the first unit of packed red blood cells, despite Lasix ordered, he had a sudden onset of severe shortness of breath. Putty Tinter Maker evaluated the patient and he appeared to have flash pulmonary edema, which was treated with additional Lasix, nitro, and morphine. Symptoms resolved and he was able to receive a second unit without complications. His hemoglobin subha from 5.6 at the time of admission to 7.7 g/ dL at the time of discharge. Morning labs showed hemoglobin of 8.2, repeat at 2 o'clock in the afternoon showed a fall to 7.7, but when compared to admission and with known 2 units of transfusion, 5.6 to 7.7 would be the expected rise and the patient had no complaints of obvious bleeding during his hospital stay. Building Serviceman, Dr. Donald Glover, consulted on this case and completed upper endoscopy, which showed no evidence of bleeding or ulcerations. Given his acute presentation, this is concerning for perhaps a slow lower GI bleed. Of note, the patient is severely microcytic with an MCV of 75 and he appeared to be completely compensated with a hemoglobin of 5.5 at the time of admission, so this is likely then a very slow bleed. His last colonoscopy was about 10 years ago done at another facility and he states that this is reportedly normal. He does have a long history of smoking. This constellation of findings is concerning for possible colon malignancy and the patient does require a colonoscopy. DISPOSITION: The patient is stable for discharge home where he lives with his . Recommend repeat CBC in 3 to 5 days with close followup with his primary care provider and a followup appointment with Dr. Glover within the next 1 to 2 weeks for colonoscopy. These recommendations were reviewed with the patient and his and both were agreeable. I recommend avoiding any blood thinner medications. LEONOR WATTERS CC: Claire AREVALO; LEONOR Ribera; Dr. Donald Glover* [id number]/CPS #: [id number] MTDD
== END 2016-09-22 19:20 | disposition home or self-care (01) | DRG 811 ==
LOC: ED 14:58 → MEDTELE 18:53
PROVIDERS: ADMIT Hospitalist; ATTEND Hospitalist
PROC: 30233N1 Transfusion of Nonautologous Red Blood Cells into Peripheral Vein, Percutaneous Approach (ICD-10-PCS; 2016-09-21)
PROC: 0DJ08ZZ Inspection of Upper Intestinal Tract, Via Natural or Artificial Opening Endoscopic (ICD-10-PCS; principal; 2016-09-22)
DX: D64.89 Other specified anemias (principal); J81.0 Acute pulmonary edema; K92.1 Melena; J44.9 Chronic obstructive pulmonary disease, unspecified; E11.9 Type 2 diabetes mellitus without complications; I73.9 Peripheral vascular disease, unspecified; R74.8 Abnormal levels of other serum enzymes; I10 Essential (primary) hypertension; K21.9 Gastro-esophageal reflux disease without esophagitis; Z79.899 Other long term (current) drug therapy; Z87.891 Personal history of nicotine dependence; Z79.4 Long term (current) use of insulin
CPT/HCPCS: 36415; 71020; 80048; 80053; 81003; 82272; 82550; 83605; 83880; 84484; 85014; 85018; 85025; 85610; 85730; 86140; 86850; 86900; 86901; 86922; 87040; 93005; 94640; 94760; A9270-GY; J1940; J2060; J2250; J2270; J2930; J3010; P9016

== ENCOUNTER 2016-11-23 03:09 | Inpatient (IN) | payer MEDICARE ==
[2016-11-23] MEDS ORDERED: Albuterol/Ipratropium NEB.SOL* Albuterol 2.5 MG/Ipratropium 0.5 MG 3 ML INH ONE (03:21)
[2016-11-23] MEDS ORDERED: methylPREDNISolone 125 MG* 2 ML VIAL IV ONE (03:21)
[2016-11-23] MEDS ORDERED: Albuterol/Ipratropium NEB.SOL* Albuterol 2.5 MG/Ipratropium 0.5 MG 3 ML ONE (03:22)
[2016-11-23] MEDS ORDERED: Azithromycin IV(*) 500 MG in NS 0.9% 250 ML* 250 ML IVPB ONE (04:05)
[2016-11-23] MEDS ORDERED: cefTRIAXone VIAL(*) 1,000 MG in NS 0.9% 50 ML* 50 ML IVPB ONE (04:05)
[2016-11-23] MEDS ORDERED: Furosemide IV* 10 MG/ML 10 ML VIAL (100 MG) IV ONE ×2 (04:13→09:00)
[2016-11-23 04:15] LABS: Albumin 3.2 g/dL (3.2-5.2); BUN/Creatinine Ratio 25.5 (8-20); Calcium 8.9 mg/dL (8.6-10.3); EGFR African American 92.3 (>60); EGFR Non-African American 71.8 (>60); Potassium 4.5 mmol/L (3.5-5.0); Total Bilirubin 0.4 mg/dL (0.2-1.0); Total Protein 8.2 g/dL (6.4-8.9)
[2016-11-23 04:17] LABS: Hematocrit 23 % (42-52); Hemoglobin 6.8 g/dl (14.0-18.0); Mean Corpuscular HGB Conc 29 g/dl (31-36); Mean Corpuscular Hemoglobin 22 pg (27-31); Mean Corpuscular Volume 74 fL (80-94); Mean Platelet Volume 7 um3 (7.4-10.4); Red Blood Count 3.13 10^6/ul (4.0-5.4); Red Cell Distribution Width 20 % (10.5-15); White Blood Count 12.5 10^3/ul (3.5-10.8)
[2016-11-23 04:18] LABS: Troponin I 0.03 ng/mL (<0.04)
[2016-11-23 04:20] LABS: Add Diff/Slide Review? Slide Review Added; Comments Flag Yes
[2016-11-23 04:51] LABS: Hypochromasia 2+; Macrocytosis 1+; Microcytosis 2+
[2016-11-23] MEDS ORDERED: Docusate CAP* 100 MG PO PRN (05:02)
[2016-11-23] MEDS ORDERED: Acetaminophen TAB* 325 MG PO PRN (05:02)
[2016-11-23] MEDS ORDERED: Al Hydrox/Mg Hydrox/Simet LIQ* 30 ML UDC PO PRN (05:02)
[2016-11-23] MEDS ORDERED: Senna TAB PO PRN (05:02)
[2016-11-23] MEDS ORDERED: Ondansetron INJ* 2 MG/ML VIAL IV PRN (05:02)
[2016-11-23] MEDS ORDERED: Dextrose 50% Syringe 50 ML* 25 GM/50 ML SYRINGE IV PUSH PRN (05:08)
[2016-11-23] MEDS ORDERED: Albuterol HFA INHALER* 8 gm MDI INH PRN (05:08)
[2016-11-23] MEDS ORDERED: traMADol TAB* 50 MG PO PRN (05:09)
--- NOTE | 2016-11-23 05:40 | ED ---
Alfonso Munoz Alok, scribed for Gregorio Cameron on 11/23/16 at 0319 . Shortness of Breath - HPI Summary HPI Summary: 71 y/o male present for SOB for the last hour. Pt is on home O2 with 2 or 3L. Pt took one nebulizer PHARMACIST INTERN. Pt has had two blood transfusions. Pt states he is "bleeding internally". - History of Current Complaint Chief Complaint: EDShortnessOfBreath Hx Obtained From: Patient Onset/Duration: Lasting Hours - 1 hour, Still Present Timing: Constant Current Severity: Moderate - Allergy/Home Medications Allergies/Adverse Reactions: Allergies Allergy/AdvReac Type Severity Reaction Status Date / Time No Known Allergies Allergy Verified 05/17/16 18:43 PMH/Surg Hx/FS Hx/Imm Hx Endocrine/Hematology History: Reports: Hx Diabetes Denies: Hx Anticoagulant Therapy Cardiovascular History: Reports: Hx Deep Vein Thrombosis - 20 years ago, Hx Hypertension - lisinopril Denies: Hx Congestive Heart Failure, Hx Myocardial Infarction, Hx Pacemaker/ ICD Respiratory History: Reports: Hx Chronic Obstructive Pulmonary Disease (COPD), Hx Pneumonia GI History: Reports: Hx Gastrointestinal Bleed Denies: Hx Gastroesophageal Reflux Disease History: Denies: Hx Acute Renal Failure, Hx Chronic Renal Failure Musculoskeletal History: Reports: Hx Arthritis, Hx Back Problems - herniated discs Sensory History: Reports: Hx Contacts or Glasses Opthamlomology History: Reports: Hx Contacts or Glasses Neurological History: Denies: Hx Headaches Psychiatric History: Comment Only: Other Psychiatric Issues/Disorders - sometimes feels anxious/ depressed - no formal dx - Surgical History Surgery Procedure, Year, and Place: Appendectomy (2011). Intestinal resection ( 2011) Hx Anesthesia Reactions: No Infectious Disease History: No Infectious Disease History: Denies: Hx Hepatitis, Hx Human Immunodeficiency Virus (HIV), Hx of Known/ Suspected MRSA, Traveled Outside the [place] in Last 30 Days - Family History Known Family History: Positive: Diabetes - Social History Occupation: Retired Alcohol Use: None Hx Substance Use: No Substance Use Type: Reports: None Hx Tobacco Use: Yes Smoking Status (MU): Former Smoker Type: Cigarettes Amount Used/How Often: 4 to 5 ppd Length of Time of Smoking/Using Tobacco: 55 years Have You Smoked in the Last Year: No Review of Systems Negative: Fever Positive: Shortness Of Breath All Other Systems Reviewed And Are Negative: Yes Physical Exam Triage Information Reviewed: Yes Vital Signs On Initial Exam: Initial Vitals Temp Pulse Resp BP Pulse Ox 97.2 F 128 20 136/62 99 11/23/16 03:12 11/23/16 03:12 11/23/16 03:12 11/23/16 03:12 11/23/16 03:12 Vital Signs Reviewed: Yes Appearance: Positive: Well-Appearing, No Pain Distress Skin: Positive: Warm, Skin Color Reflects Adequate Perfusion, Dry Head/Face: Positive: Normal Head/Face Inspection Eyes: Positive: EOMI, JOE ENT: Positive: Normal ENT inspection Neck: Positive: Supple, Nontender Respiratory/Lung Sounds: Positive: Other - Bilateral wheezing Cardiovascular: Positive: Tachycardia Abdomen Description: Positive: Nontender, Soft Bowel Sounds: Positive: Present Musculoskeletal: Positive: Normal, Strength/ROM Intact Neurological: Positive: Other - alert and confused Diagnostics - Vital Signs Vital Signs Temp Pulse Resp BP Pulse Ox 11/23/16 03:12 97.2 F 128 20 136/62 99 - Laboratory Lab Results: Lab Results 11/23/16 11/23/16 11/23/16 Range/Units 03:45 03:45 03:45 WBC 12.5 H (3.5-10.8) 10^3/ul RBC 3.13 L (4.0-5.4) 10^6/ul Hgb 6.8 L (14.0-18.0) g/dl Hct 23 L (42-52) % MCV 74 L (80-94) fL MCH 22 L (27-31) pg MCHC 29 L (31-36) g/dl RDW 20 H (10.5-15) % Plt Count 506 H (150-450) 10^3/ul MPV 7 L (7.4-10.4) um3 Neut % (Auto) 74.0 (38-83) % Lymph % (Auto) 17.3 L (25-47) % [place] % (Auto) 4.3 (1-9) % Eos % (Auto) 2.5 (0-6) % Baso % (Auto) 1.9 (0-2) % Absolute Neuts (auto) 9.2 H (1.5-7.7) 10^3/ul Absolute Lymphs (auto) 2.2 (1.0-4.8) 10^3/ul Absolute Monos (auto) 0.5 (0-0.8) 10^3/ul Absolute Eos (auto) 0.3 (0-0.6) 10^3/ul Absolute Basos (auto) 0.2 (0-0.2) 10^3/ul Absolute Nucleated RBC 0.01 10^3/ul Nucleated RBC % 0.1 Normal RBC Morphology Not Reportable Hypochromasia 2+ Microcytosis 2+ Macrocytosis 1+ Sodium 133 (133-145) mmol/L Potassium 4.5 (3.5-5.0) mmol/L Chloride 101 (101-111) mmol/L Carbon Dioxide 26 (22-32) mmol/L Anion Gap 6 (2-11) mmol/L BUN 26 H (6-24) mg/dL Creatinine 1.02 (0.67-1.17) mg/dL Est GFR ( Amer) 92.3 (>60) Est GFR (Non-Af Amer) 71.8 (>60) BUN/Creatinine Ratio 25.5 H (8-20) Glucose 249 H (70-100) mg/dL Lactic Acid 1.5 (0.5-2.0) mmol/L Calcium 8.9 (8.6-10.3) mg/dL Total Bilirubin 0.40 (0.2-1.0) mg/dL AST 13 (13-39) U/L ALT 13 (7-52) U/L Alkaline Phosphatase 61 (34-104) U/L Troponin I 0.03 (<0.04) ng/mL B-Natriuretic Peptide ( - 100) pg/mL Total Protein 8.2 (6.4-8.9) g/dL Albumin 3.2 (3.2-5.2) g/dL Globulin 5.0 H (2-4) g/dL Albumin/Globulin Ratio 0.6 L (1-3) Blood Type Antibody Screen Crossmatch 11/23/16 11/23/16 Range/Units 03:45 03:45 WBC (3.5-10.8) 10^3/ul RBC (4.0-5.4) 10^6/ul Hgb (14.0-18.0) g/dl Hct (42-52) % MCV (80-94) fL MCH (27-31) pg MCHC (31-36) g/dl RDW (10.5-15) % Plt Count (150-450) 10^3/ul MPV (7.4-10.4) um3 Neut % (Auto) (38-83) % Lymph % (Auto) (25-47) % [place] % (Auto) (1-9) % Eos % (Auto) (0-6) % Baso % (Auto) (0-2) % Absolute Neuts (auto) (1.5-7.7) 10^3/ul Absolute Lymphs (auto) (1.0-4.8) 10^3/ul Absolute Monos (auto) (0-0.8) 10^3/ul Absolute Eos (auto) (0-0.6) 10^3/ul Absolute Basos (auto) (0-0.2) 10^3/ul Absolute Nucleated RBC 10^3/ul Nucleated RBC % Normal RBC Morphology Hypochromasia Microcytosis Macrocytosis Sodium (133-145) mmol/L Potassium (3.5-5.0) mmol/L Chloride (101-111) mmol/L Carbon Dioxide (22-32) mmol/L Anion Gap (2-11) mmol/L BUN (6-24) mg/dL Creatinine (0.67-1.17) mg/dL Est GFR ( Amer) (>60) Est GFR (Non-Af Amer) (>60) BUN/Creatinine Ratio (8-20) Glucose (70-100) mg/dL Lactic Acid (0.5-2.0) mmol/L Calcium (8.6-10.3) mg/dL Total Bilirubin (0.2-1.0) mg/dL AST (13-39) U/L ALT (7-52) U/L Alkaline Phosphatase (34-104) U/L Troponin I (<0.04) ng/mL B-Natriuretic Peptide 371 H ( - 100) pg/mL Total Protein (6.4-8.9) g/dL Albumin (3.2-5.2) g/dL Globulin (2-4) g/dL Albumin/Globulin Ratio (1-3) Blood Type B Positive Antibody Screen Negative Crossmatch See Detail Result Diagrams: 11/23/16 03:45 11/23/16 03:45 Lab Statement: Any lab studies that have been ordered have been reviewed, and results considered in the medical decision making process. - Radiology CXR Xray Interpretation: Positive (See Comments) - CHF and PNA Radiology Interpretation Completed By: ED Physician - Dr. Cameron - EKG 0313 Cardiac Rate: Tachycardia - 115 bpm EKG Rhythm: Sinus Tachycardia Course/Dx - Course Course Of Treatment: pt came with sob and labs and cxr done. pt given duoneb and solumedrol, abx, lasix given and pt has anemia. blood ordered. admit to hospitalist. pt rectal deferred as he refused. - Diagnoses Provider Diagnoses: CHF (congestive heart failure), PNA (pneumonia), COPD exacerbation, Anemia, GI bleed - Physician Notifications Discussed Care of Patient With: Dr. Ramires ([facility]) @ [id number] - Will come see pt - Critical Care Time Critical Care Time: 30-74 min - exc copd/resp failure Discharge - Discharge Plan Condition: Stable Disposition: ADMITTED TO [facility] The documentation as recorded by the Alfonso gregory Alok accurately reflects the service I personally performed and the decisions made by Nisha pérez Emmanuel.
--- NOTE | 2016-11-23 08:16 | RAD ---
INDICATION: Shortness of breath COMPARISON: Most recent comparison chest x-rays dated September 21, 2016 TECHNIQUE: Single AP portable view of the chest was obtained. FINDINGS: Image quality is compromised due to the relative inferiority of a portable chest x-ray. Similar to the previous chest x-ray, the lungs appear hyperaerated in the AP view. There are diffuse reticulonodular densities that become thicker and more confluent at the right lung base. Overall these densities appears slightly worse when compared to the previous chest x-ray. There also appears to be slight interval worsening in the degree of peribronchial thickening. There is bibasilar costophrenic angle blunting. The heart and mediastinum are normal in contour and size. Visualized bones are normal for the patient's age. IMPRESSION: Depending on the clinical setting the chest x-ray findings could be compatible with exacerbation of bronchitis/inflammatory lung disease and/or worsening congestive heart failure with small bibasilar pleural effusions.
[2016-11-23] MEDS ORDERED: Spiriva Inhaler DEVICE* 1 EACH DEVICE INH ONE (09:00)
[2016-11-23] MEDS: Tiotropium CAP.INH* CAP.INH/18 MCG INH SCH (09:00)
[2016-11-23] MEDS: Insulin LISPRO* 1 UNITS UNIT SUBCUT SCH ×3 (09:14→17:40)
[2016-11-23] MEDS: Omeprazole CAP* 20 MG PO SCH ×2 (09:16→21:00)
--- NOTE | 2016-11-23 09:54 | HP ---
HISTORY AND PHYSICAL: DATE OF ADMISSION: 11/23/16 TIME OF EVALUATION: 0500 PRIMARY CARE PROVIDER: LEONOR Ribera CHIEF COMPLAINT: Shortness of breath. HISTORY OF PRESENT ILLNESS: This is a 71-year-old male with a past medical history of hypertension, COPD, and recent admission back in September for a GI bleed with a normal upper endoscopy who presents to the emergency room after waking up during the middle of the night with acute onset of shortness of breath. The patient states his symptoms are similar from the last admission when he had a GI bleed. He denies any bright red blood per rectum. No melena. He did state he followed up and had a colonoscopy, but was unsure of the results. He is supposed to follow up with Dr. Peng today with an appointment. He denies any changes in his weight. He's had normal bowel movements. No nausea or vomiting. No chest pain; and, as mentioned, shortness of breath. He denies having cough. No fever. No upper respiratory symptoms. No abdominal pain. Otherwise, remainder of review of system is negative. In the emergency room, the patient had labs, imaging. He was given Solu-Medrol 125 mg IV, Lasix 40 mg IV, ceftriaxone, DuoNeb, and was referred to the hospitalist service for further evaluation. PAST MEDICAL HISTORY: 1. Admission in September 2016 with a GI bleed, unclear specific source with a normal upper endoscopy. 2. History of gastric erosions back in 2015. 3. Diabetes. 4. Peripheral vascular disease. 5. Hypertension. 6. COPD. 7. GERD. PAST SURGICAL HISTORY: Bowel resection. MEDICATIONS: 1. Actos 45 mg daily. 2. Lisinopril 5 mg daily. 3. Glipizide 10 mg p.o. b.i.d. 4. Lantus 10 mg at bedtime. 5. Albuterol inhaler one puff every 4 hours as needed. 6. Spiriva one cap daily. 7. Lasix 20 mg daily. 8. Omeprazole 20 mg p.o. b.i.d. 9. Potassium chloride 20 mEq daily. 10. Victoza 0.6 mg subcu daily with meals. 11. Garlic 1000 mg daily. 12. Xijws-4-swbja acid 1000 mg daily. 13. Ascorbic acid 500 mg daily. 14. Tramadol 50 mg every hour as needed for pain. 15. Folic acid 1 mg daily. 16. Vitamin B with iron. ALLERGIES: No known drug allergies. FAMILY HISTORY: Reviewed and noncontributory. SOCIAL HISTORY: The patient lives at home with his , Maame Kent, who is his healthcare proxy. He is a DNR/DNI. He has a significant past smoking history, quit in 2016; at that point, he smoked for 50 years, 2 to 3 packs per day. He was also a heavy alcohol user during that time as well. He no longer he uses alcohol. He is a retired shipping and receiving operator. REVIEW OF SYSTEMS: As mentioned in the HPI. PHYSICAL EXAMINATION GENERAL: No acute distress. Resting comfortably with his at the bedside. VITAL SIGNS: Temp 97.2, pulse rate 107, respiratory rate 20, oxygen saturation 97% on 3 L, blood pressure 100/51. HEENT: Pupils are equal and reactive. Conjunctivae are pale. Head normocephalic. Oropharynx, mucous membranes are moist. No erythema or exudate. NECK: Supple. No lymphadenopathy. RESPIRATORY: Diminished breath sounds, poor aeration with prolonged expiratory phase, and scant and faint expiratory wheezing. CARDIAC: Harsh systolic murmur most prominent at the right sternal base radiating into the carotids. Regular rate and rhythm. ABDOMEN: Soft, nontender, and nondistended. EXTREMITIES: No clubbing, cyanosis, or edema. +1 DP. NEUROLOGIC: Alert and oriented x3. No focal neurologic deficits. LABORATORY DATA: White count 12.5, hemoglobin 6.8, hematocrit 23, MCV 74, platelets 506. Sodium 133, potassium 4.5, chloride 101, bicarb 26, BUN 26, creatinine 1.02, glucose 249. Lactic acid 1.5 BNP 371. Troponin 0.03. Radiographic Data: Increased prominent interstitial markings on wet read. EKG - sinus tach. ASSESSMENT: This is a 71-year-old male with a past medical history of COPD and recent GI bleed back in September who presents to the emergency room with acute onset of shortness of breath, found to be anemic. 1. Shortness of breath. Assessment: I suspect the etiology behind his shortness of breath is his anemia. His H and H has downtrended again. It appears that he has recently had a normal upper endoscopy and colonoscopy. According to the patient, he had one done as an outpatient, and is supposed to follow up with Dr. Peng today. He denies any bloody stools or melena, but it 's unclear the etiology behind his bleeding. He is not taking any NSAIDs. He is taking his omeprazole. The patient does have some prominent interstitial marking. He may have some underlying congestive heart failure with the setting of anemia as well. PLAN: We will admit him to telemetry. We will keep him on a clear liquid diet. I will order bleeding scan in setting of negative recent upper and lower endoscopy. We will also get an echocardiogram and to evaluate any congestive heart failure. We will order 2 units of blood and gave him Lasix in between his units and follow his H and H. We will also get a Hemoccult (it was positive on his last admission), and trend his troponin. No findings of an infectious cytology. At the time, no indication for continuing antibiotics. CHRONIC MEDICAL PROBLEMS: 1. Diabetes. We will continue his Lantus, place him on lispro in place of his oral agents while he is an inpatient. 2. COPD. Assessment: I suspect this is his baseline. According to him, it appears that way, and his inhalers did not improve his shortness of breath. Plan: Will resume his inhaler regimen. 3. Hypertension. The patient's blood pressures are soft on admission. We will hold his lisinopril for now and his oral Lasix, and continue Lasix as needed as mentioned above. 4. GERD. With a history of gastric erosions, though, noted on the upper endoscopy back in September, it was an unremarkable exam. We will continue his omeprazole 20 p.o. b.i.d. 5. FEN. We will place him on a clear regular diet. 6. DVT prophylaxis. The patient scores high risk in the setting of GI bleed. We will place him on SCDs. 7. Code status. The patient is a DNR/DNI. TIME SPENT: Greater than 60 minutes were spent doing the history and physical; more than half the time was spent in direct patient contact. CC: LEONOR Ribera* [id number]/CPS #: [id number] MTDD
--- NOTE | 2016-11-23 12:20 | RAD ---
Indication: Anemic, GI bleed. Comparison: November 08, 2016 barium enema. Technique: 25.290 mCi of Tc-99m were labeled to the patient?s own blood cells. Images of the abdomen were obtained in the anterior projection from 0 to 50 minutes following injection and then at 3 hours the patient was imaged for an additional 35 minutes. Report: There is accumulation of radiopharmaceutical at the transverse colon beginning at 5 minutes with mild progression of accumulation through 50 minutes. On the additional images obtained at 3 hours there is no further accumulation of radiopharmaceutical at the transverse colon. Pyelographic phase radiopharmaceutical noted at the distended urinary bladder. IMPRESSION: The constellation of findings is most consistent with acute GI bleed at the transverse colon likely at the proximal segment/ hepatic flexure with distal propagation of intraluminal radiopharmaceutical.
--- NOTE | 2016-11-23 15:15 | PN ---
Hospitalist Progress Note HOSPITALIST ADDENDUM Patient seen and examined at bedside, offers no complaints at this time. States he had a brown BM earlier today. Awaiting results of bleeding scan. GI consult requested.
[2016-11-23] MEDS ORDERED: PEG 3000 GI LAVAGE* 1 GALLON PO ONE (17:00)
--- NOTE | 2016-11-23 17:52 | ECHO ---
Patient: RETA ANDRADE [facility] Rec#: [id number] : 1945 Date: 11/23/2016 Age: 71y Height: 172.72 cm / 68.0 in Weight: 68.04 kg / 150.0 lbs Sex: M BSA: 1.81 Room#: [facility] Admit Date#: 11/23/2016 Type: Inpatient Referring: Coby Ramires Reading: Kyree Hernandez MD Bull Riveter: Sahra Hansen Bull Riveter: Danica Marie RD,RDMS CC: LEONOR Ribera Transthoracic Echocardiogram Indication: Dyspnea BP: 100/44 HR: 103 Rhythm: Tachycardia Indications Shortness of Breath Findings History: DM, DVT, HTN, COPD, GI bleed, former smoker. Technical Comments: The study quality is fair. The study is technically limited due to the patient's history of COPD. The study is technically limited due to the patient's smoking history. Completed at 1115. Left Ventricle: The left ventricular chamber size is normal. Mild to moderate concentric left ventricular hypertrophy is observed. There is moderate to severely decreased left ventricular systolic function. The estimated ejection fraction is 35-40%. closer to 35%. The assessment of diastolic function is non-diagnostic. Left Atrium: The left atrium is moderately dilated. Right Ventricle: The right ventricle is mildly dilated. The right ventricular global systolic function is normal. Right Atrium: The right atrium is mildly dilated. Aortic Valve: The aortic valve is trileaflet. Moderate aortic leaflet calcification is visualized. Systolic excursion of the aortic valve cusps is reduced. There is mild aortic regurgitation. There is moderate to severe aortic stenosis. The mean gradient of the aortic valve is 43.01 mmHg. The peak instantaneous gradient of the aortic valve is 63.97 mmHg. The aortic valve area, by peak velocities, is calculated at 0.79 cm2. The aortic valve area, by VTI's, is calculated at 1 cm2. Highest aortic valve velocity was acquired with Pedoff in apical position. The peak left ventricular outflow tract gradient is 3.74 mmHg. Mitral Valve: There is mitral annular calcification. Mitral valve leaflet mobility is moderately restricted. There is mild mitral regurgitation. There is moderate to severe mitral stenosis. The mean gradient across the mitral valve is 14.62 mmHg. Tricuspid Valve: The tricuspid valve leaflets are normal. There is mild tricuspid regurgitation. There is evidence of mild to moderate pulmonary hypertension. There is no tricuspid stenosis. Pulmonic Valve: The pulmonic valve structure is not well visualized. There is a trace pulmonic regurgitation. There is no pulmonic stenosis. Pericardium: There is no significant pericardial effusion. Aorta: There is no dilatation of the ascending aorta. The aortic arch is not well visualized. There is no dilation of the aortic root. Pulmonary Artery: The main pulmonary artery is not well visualized. Venous: The inferior vena cava is dilated. There is an approximate 50% respiratory change in the inferior vena cava dimension. Conclusions Mild to moderate concentric left ventricular hypertrophy is observed. There is moderate to severely decreased left ventricular systolic function. The estimated ejection fraction is 35-40%, closer to 35%. The left atrium is moderately dilated. The right ventricle is mildly dilated. The right ventricular global systolic function is normal. There is mild mitral regurgitation. There is moderate to severe mitral stenosis. The mean gradient across the mitral valve is 14.62 mmHg. There is mild tricuspid regurgitation. There is evidence of mild to moderate pulmonary hypertension. echo density in the IVC of uncertain significance ( 0.6 cm x 2.0 cm): may be artifactual. No prior study. Measurements Name Value Normal Range RVIDd (AP) 2D 3 cm (0.9 - 2.6) RVDdMajor (2D) 4.7 cm (2.2 - 4.4) RAd ISD 4CH 5.1 cm (3.4 - 4.9) RA (A4C)W 4.8 cm (2.9 - 4.6) IVSd (2D) 1.2 cm (0.6 - 1) LVPWd (2D) 1.3 cm (0.6 - 1) LVIDd (2D) 5.2 cm (3.6 - 5.4) LVIDs (2D) 3.4 cm - LV FS (2D) 35 % (25 - 45) Aortic Annulus 1.7 cm (1.4 - 2.6) Ao root diameter (2D) 2.6 cm (2.1 - 3.5) Ascending Ao 3.4 cm (2.1 - 3.4) LA dimension (AP) 2D 4.2 cm (2.3 - 3.8) LAd ISD 4CH 5 cm (2.9 - 5.3) LA ISD 4CH W 4.9 cm (2.5 - 4.5) Name Value Normal Range LA ESV SP 4CH (A/L) 67 ml - LA ESV SP 2CH (A/L) 87 ml - LA ESV BP (A/L) 77 ml - LA ESV BP (A/L) index 42.79 ml/m2 - LA ESV SP 4CH (MOD) 56 ml - LA ESV SP 2CH (MOD) 81 ml - Name Value Normal Range MV E-wave Vmax 1.67 m/sec - MV deceleration time 264.1 msec - MV A-wave Vmax 1.78 m/sec - MV E:A ratio 0.93 ratio - LV septal e' Vmax 0.1 m/sec - LV lateral e' Vmax 0.14 m/sec - LV E:e' septal ratio 16.7 ratio - LV E:e' lateral ratio 11.93 ratio - Name Value Normal Range AV Vmax 4 m/sec - AV VTI 71.1 cm - AV peak gradient 63.97 mmHg - AV mean gradient 43.01 mmHg - LVOT diameter 2 cm - LVOT Vmax 1 m/sec - LVOT VTI 22.8 cm - LVOT peak gradient 3.74 mmHg - LVOT mean gradient 2 mmHg - DOI (VTI) 0.32 ratio - JERICHO (continuity Vmax) 0.79 cm2 - JERICHO (continuity VTI) 1 cm2 - Name Value Normal Range MV Vmax 2.55 m/sec - MV VTI 38.13 cm - MV peak gradient 26.03 mmHg - MV mean gradient 14.62 mmHg - MR Vmax 5.93 m/sec - MR VTI 170.8 cm - Name Value Normal Range TR Vmax 2.9 m/sec - TR peak gradient 34 mmHg - RAP 8 mmHg - RVSP 42 mmHg - IVC diameter 2.2 cm - Name Value Normal Range PV Vmax 0.9 m/sec - PV peak gradient 3.57 mmHg -
--- NOTE | 2016-11-23 19:45 | CONS ---
CONSULTATION REPORT: DATE OF CONSULT: 11/23/16 REASON FOR CONSULT: Microcytic anemia and GI bleed. NARRATIVE: This is a 71-year-old gentleman with a history of COPD, on oxygen; peripheral vascular disease; diabetes. He presents with shortness of breath, fatigue, and was found to have a microcytic anemia. The patient initially presented back in September of 2016 with a very similar presentation. He, at that time, had a hemoglobin of 5.6. He was transfused. He did undergo an upper endoscopy on 09/22/16, which was normal. He was discharged and arrangements were made for attempted colonoscopy on 10/19/16, which was performed, but only successful to approximately the splenic flexure and it was terminated due to poor prep and extensive diverticulosis and luminal narrowing. This was followed by barium enema, which I have reviewed with the radiologist, which demonstrates diverticulosis, but no other abnormality or lesion. The patient in the last month has had a sense of shortness of breath, but was basically at his baseline until last night when he became profoundly short of breath. He felt that this was due to bleeding, although did not experience any rectal bleeding. He does state that he had loose dark stools, but states that they were not truly black. Otherwise, while here, he was a bit tachycardic, but was otherwise hemodynamically stable. He had a hemoglobin of 6.8 with an MCV of 74. He has been transfused and has had no evidence of GI bleed at his point. PAST MEDICAL HISTORY: Again, includes COPD, oxygen requiring, from tobacco use ; history of diabetes; peripheral vascular disease; hypertension. He apparently had a small bowel resection 10 years ago for what sounds like a vascular event. MEDICATIONS: On admission were: 1. Actos. 2. Lisinopril. 3. Glipizide. 4. Lantus insulin. 5. Albuterol. 6. Spiriva. 7. Lasix. 8. Omeprazole. 9. Potassium. 10. Victoza. REVIEW OF SYSTEMS: He denies any abdominal pain, nausea, vomiting, or heartburn. PHYSICAL EXAM: He is an edentulous gentleman, looking older than stated age, but in no acute distress. Blood pressure is 100/44, heart rate is 96 and regular. Skin reveals him to not be particularly pale. There is no ecchymosis or telangiectasias. Lungs revealed distant breath sounds. Cardiac exam revealed distant heart sounds, but a regular rhythm. Abdomen is soft without tenderness or distention. Bowel sounds normoactive. Extremities reveal no edema. DIAGNOSTIC STUDIES/LAB DATA: Include a hemoglobin of 6.8, MCV of 74, platelet count of 506,000. BUN of 26, creatinine of 1.02. From previous workup, he was Hemoccult positive in September of 2016. Additional data include a bleeding scan that was performed last night, which I did review demonstrating what seems to be active active bleeding coming from perhaps the transverse colon. IMPRESSION: A 71-year-old gentleman with a persistent profound microcytic anemia history, being intermittently guaiac positive, who now presents with shortness of breath, likely from his worsening anemia. He had a bleeding scan, which interestingly demonstrates activity in the transverse colon. He had a limited colonoscopy only to the splenic flexure and an unremarkable barium enema. Certainly, a lesion in the more proximal aspect of the colon is our main concern. I discussed with both him and his various strategies to perform better imaging of this region including attempting another colonoscopy, although I warned him that may not be successful and additionally given his cardiopulmonary status maybe somewhat at higher risk so we are pursuing a virtual colonoscopy. We will plan on doing the virtual colonoscopy after a prep today. That will be ordered for tomorrow. We will base further recommendations on those findings. He is being transfused and is currently sable. [id number]/[facility] #: [id number] [facility] + HOSPITALSTammy
[2016-11-23 20:34] LABS: Hematocrit 28 % (42-52); Hemoglobin 8.8 g/dl (14.0-18.0)
[2016-11-23] MEDS ORDERED: Insulin GLARGINE(*) 1 UNITS UNIT SUBCUT SCH (21:00)
[2016-11-24 05:41] LABS: Hematocrit 25 % (42-52); Mean Corpuscular HGB Conc 32 g/dl (31-36); Mean Corpuscular Hemoglobin 24 pg (27-31); Mean Platelet Volume 7 um3 (7.4-10.4); Red Blood Count 3.31 10^6/ul (4.0-5.4); Red Cell Distribution Width 20 % (10.5-15)
[2016-11-24 05:42] LABS: Comments Flag Yes
[2016-11-24 05:43] LABS: Mean Corpuscular Volume 75 fL (80-94)
[2016-11-24 05:53] LABS: BUN/Creatinine Ratio 25.3 (8-20); Calcium 8.5 mg/dL (8.6-10.3); EGFR Non-African American 96.4 (>60); Potassium 3.4 mmol/L (3.5-5.0)
[2016-11-24] MEDS: Insulin LISPRO* 1 UNITS UNIT SUBCUT SCH ×2 (07:40→13:25)
[2016-11-24] MEDS: Tiotropium CAP.INH* CAP.INH/18 MCG INH SCH (08:48)
[2016-11-24] MEDS ORDERED: Iodixanol 320 (CONTRAST) 100 ML SDV IV ONE (10:10)
[2016-11-24 11:22] VITALS: BP 104/55
--- NOTE | 2016-11-24 12:34 | RAD ---
CLINICAL HISTORY: Lower GI bleed. Relevant surgical history includes appendectomy 2011 as well as "intestinal resection" in 2011 COMPARISON: Tach red blood cell scan dated November 23, 2016 that demonstrates bleeding in the transverse colon TECHNIQUE: Contrast enhanced CT examination of the abdomen and pelvis from the lung bases through the initial tuberosities. The patient received 84 mL Visipaque 320 intravenously prior to imaging.The patient received oral contrast as well prior to imaging. FINDINGS: VISUALIZED LUNG BASES: There are small bibasilar pleural effusions. The visualized lungs exhibit centrilobular emphysematous changes as well as compressive atelectasis at the dependent lungs adjacent to the pleural effusions. ABDOMEN AND PELVIS: The right rectus abdominis is either extremely diminutive or absent relative to the left side. The liver, spleen, pancreas and adrenal glands are grossly normal in appearance. Hyperattenuating focus in the lateral aspect of the gallbladder could represent a small gallstone. There are no signs of biliary obstruction. The kidneys are normal in appearance without focal mass, calcification or signs of hydronephrosis. At least one simple cyst is noted in the left kidney. Additional low density structures are too small to characterize further. The small and large bowel are not distended. The patient is status post right hemicolectomy. There appears to be surgical material adjacent to the sigmoid colon and rectum. There is no gross retroperitoneal or mesenteric lymphadenopathy. The pelvic viscera is normal in appearance. There is coarse atherosclerotic calcification involving the abdominal aorta extending into the bilateral iliac arteries. Similar episodes chronic calcification is seen at the left greater than right common femoral arteries. Degenerative changes of the lower thoracic and lumbar spine include loss of intervertebral disc height, multilevel vacuum disc phenomenon and exuberant marginal osteophyte formation.There are no sinister bone lesions. IMPRESSION: 1. Moderate bilateral pleural effusions with likely adjacent compressive atelectasis of the dependent lower lobes. 2. The patient appears to be status post right hemicolectomy and possibly status post surgery of the rectosigmoid colon. There is no CT evidence of macro perforation. 3. Coarse after cirrhotic calcification is seen at the infra renal abdominal aorta extending into the iliac arteries. Please correspond to symptoms of pelvic and/or lower extremity claudication. 4. The right rectus abdominis muscle appears to be absent or extremely diminutive relative to the left. Please correlate to history of flap or graft surgery. 5. Additional chronic, degenerative and iatrogenic findings as described in the body of the report.
[2016-11-24] MEDS: Omeprazole CAP* 20 MG PO SCH (15:07)
--- NOTE | 2016-11-24 15:41 | RAD ---
Indication: Incomplete colonoscopy. Air insufflation of the colon was performed. Approximately 2 L of carbon dioxide was placed in a pressure of 25 mm Hg. This scan was performed in the prone and supine position. The patient apparently has had a right hemicolectomy. The transverse colon and splenic flexure demonstrates scattered diverticula at the splenic flexure. No focal masses are identified. No annular constricting lesions are identified. There are scattered diverticula in a redundant sigmoid colon. There is residual contrast in the sigmoid colon. No annular lesions are noted. Bilateral pleural effusions are noted. The lung apices demonstrate some scarring or atelectasis in the lung bases. Heart demonstrates no pericardial effusion. The liver is normal in size. No focal lesions or intrahepatic ductal dilatation is noted. Pancreas demonstrates no mass or pancreatic duct dilatation. The spleen is normal in size. No adrenal masses are noted. The kidneys demonstrates excretion bilaterally. Cyst is noted in the left kidney. This measures approximately 15 mm. Atherosclerotic aorta is noted with ectasia of the abdominal aorta measuring up to 2.6 cm. No dilated loops of bowel are noted. The urinary bladder is unremarkable. No hernias are noted. IMPRESSION: REDUNDANT SIGMOID COLON MAKING EVALUATION SIGMOID COLON DIFFICULT. THERE MAY BE AREAS OF FOCAL WALL THICKENING IN THE SIGMOID COLON. THE TRANSVERSE COLON IS WELL-DISTENDED WITH SCATTERED DIVERTICULA IN THE REGION OF THE SPLENIC FLEXURE. NO FOCAL NODULES OR MASSES ARE NOTED IN THE TRANSVERSE COLON. ATHEROSCLEROTIC AORTA WITHOUT ANEURYSMAL DILATATION IS NOTED. BILATERAL PLEURAL EFFUSION AND LIKELY RIGHT BASILAR ATELECTASIS.
--- NOTE | 2016-11-24 16:11 | PN ---
Subjective Date of Service: 11/24/16 Interval History: HOSPITALIST PROGRESS NOTE Patient seen and examined at bedside. He's very upset he needs to be NPO for procedures. Denies abdominal pain, describes a brown BM today. Family History: Unchanged from Admission Social History: Unchanged from Admission Past Medical History: Unchanged from Admission Objective Active Medications: Acetaminophen (Tylenol Tab*) 650 mg PO Q4H PRN PRN Reason: FEVER/PAIN Al Hydrox/Mg Hydrox/Simethicone (Maalox Plus*) 30 ml PO Q6H PRN PRN Reason: INDIGESTION Albuterol (Ventolin Hfa Inhaler*) 2 puff INH Q4H PRN PRN Reason: SOB/WHEEZING Dextrose (D50w Syringe 50 Ml*) 12.5 gm IV PUSH .FOR FS < 60 - SS PRN PRN Reason: FS < 60 Docusate Sodium (Colace Cap*) 100 mg PO BID PRN PRN Reason: CONSTIPATION Insulin Glargine (Lantus(*)) 10 units SUBCUT Q24H [facility] Last Admin: 11/23/16 21:01 Dose: 10 units Insulin Human Lispro (Humalog*) 0 units SUBCUT AC RAMEZ PRN Reason: Protocol Last Admin: 11/24/16 13:25 Dose: Not Given Omeprazole (Prilosec Cap*) 20 mg PO BID [facility] Last Admin: 11/24/16 15:07 Dose: 20 mg Ondansetron HCl (Zofran Inj*) 4 mg IV Q4H PRN PRN Reason: NAUSEA/VOMITING Senna (Senokot Tab*) 1 tab PO BID PRN PRN Reason: CONSTIPATION Tiotropium [place] (Spiriva Cap.Inh*) 1 cap INH DAILY [facility] Last Admin: 11/24/16 08:48 Dose: 1 cap Tramadol HCl (Ultram*) 50 mg PO Q6H PRN PRN Reason: PAIN Vital Signs 11/24/16 11:22 Temperature 98.4 F Pulse Rate 77 Respiratory 20 Rate Blood Pressure 104/55 (mmHg) O2 Sat by Pulse 100 Oximetry Oxygen Devices in Use Now: Nasal Cannula Appearance: Elderly male sitting up in a chair in NAD. Eyes: No Scleral Icterus Ears/Nose/Mouth/Throat: Mucous Membranes Moist Neck: Trachea Midline Respiratory: Symmetrical Chest Expansion and Respiratory Effort, Clear to Auscultation Cardiovascular: RRR - Normal S1 and S2 Abdominal: NL Sounds; No Tenderness; No Distention Neurological: Alert and Oriented x 3, NL Muscle Strength and Tone Lines/Tubes/Other Access: Clean, Dry and Intact Peripheral IV Nutrition: Taking PO's Result Diagrams: 11/24/16 05:22 11/24/16 05:22 Assess/Plan/Problems-Billing Assessment: Mr. Kent is a 71yo M with PMH of prior episodes of GI bleed, type 2 DM, PVD, HTN, COPD, GERD, who presented to [facility] with another episode of symptomatic anemia. - Patient Problems (1) Acute blood loss anemia Comment: - S/p 2 PRBC - Hb stable around 8 - continue to monitor. (2) Lower GI bleed Comment: - Suspect diverticular in nature. - Plan for virtual colonoscopy and then GI f/u. If colonoscopy doesn't show tumor, source is likely diverticular, and will likely d/c patient in AM to follow up with Dr. Glover. (3) Type 2 diabetes mellitus Comment: - Continue Lantus and Lispro SS. (4) COPD (chronic obstructive pulmonary disease) Comment: - Stable. - Continue bronchodilators. (5) DVT prophylaxis Comment: - Pharmacological prophylaxis contraindicated in the setting of GI bleed. - SCDs.
--- NOTE | 2016-11-25 04:35 | DS ---
DISCHARGE SUMMARY: DATE OF ADMISSION: 11/23/16 DATE OF DISCHARGE: 11/24/16 DISCHARGE DIAGNOSES: 1. Acute blood loss anemia. 2. Lower gastrointestinal bleed, suspect diverticular in nature. SECONDARY DIAGNOSES: 1. Prior admission in September 2016 with gastrointestinal bleed of unclear etiology. 2. Gastrointestinal bleed in 2016 due to gastric erosions. 3. Type 2 diabetes. 4. Peripheral vascular disease. 5. Hypertension. 6. Chronic obstructive pulmonary disease. 7. Gastroesophageal reflux disease. 8. Diverticulosis. MEDICATION LIST: Extensive and includes: 1. Albuterol 2.5 inhaled q.6 hours p.r.n. shortness of breath. 2. Albuterol inhaler 1 puff inhaled q.4 hours p.r.n. shortness of breath. 3. Vitamin C 500 mg p.o. daily. 4. Aspirin 81 mg p.o. daily. 5. Vytorin 10/40 mg 1 tablet p.o. daily. 6. Folic acid 1 mg p.o. daily. 7. Furosemide 20 mg p.o. daily. 8. Glipizide 10 mg p.o. b.i.d. 9. Lantus 10 units subcutaneously at bedtime. 10. Ipratropium 0.5 mg inhaled q.4 hours p.r.n. shortness of breath. 11. Victoza 1.2 mg subcutaneous daily. 12. Lisinopril 5 mg p.o. daily. 13. Metformin 1000 mg p.o. b.i.d. 14. Fish oil 1000 mg p.o. daily. 15. Omeprazole 20 mg p.o. daily. 16. Actos 45 mg p.o. daily. 17. Potassium chloride 10 mEq p.o. daily. 18. Prednisone 5 mg p.o. daily. 19. Tamsulosin 0.4 mg p.o. daily. 20. Tramadol 50 mg p.o. q.8 hours p.r.n. pain. New medication: Ferrous sulfate 325 mg p.o. daily. HOSPITAL COURSE: Mr. Kent is a 71-year-old male with a complex past medical history as stated abov e that in September was admitted to [facility] with anemia, who presented to the emergency room with complaints of shortness of breath, found to be severely anemic. He had an upper endoscopy at that time that d id not show a source. As an outpatient, he had a colonoscopy that was a difficult study, incomplete to the splenic flexure with biopsy polypectomy, terminated secondary to absolutely severe diverticu losis, diverticular inflammation and a very narrowed lumen, likely consistent with a stricture. Dr. Peng was planning to have a barium enema done as outpatient and this was done in November 08 and it showed mild- to-moderate descending and sigmoid diverticulosis. The patient denied seeing blood in his stool, but he presented to the emergency room with the same s ymptoms of shortness of breath and was found to have a hemoglobin of 6.8. He was transfused with 2 PRBCs and seen in consultation by Gastroenterology (Dr. Glover). His impression is that this patien t had a persistent profound microcytic anemia, being intermittently guaiac-positive who presented wi th shortness of breath likely from his worsening anemia. The patient had a bleeding scan, which dem onstrated activity in the transverse colon. Dr. Glover' recommendation was for a virtual colonoscop y and this was performed on November 24. It showed redundant sigmoid colon making his elevation difficu lt. There maybe areas of focal wall thickening in the sigmoid. The transverse colon is well disten ded with scattered diverticula in the region of the splenic flexure. No focal nodules or masses are noted in the transverse colon. The patient was seen in followup by Dr. Glover and he feels that the patient is stable for discharge . His recommendation is for the patient to have a CBC checked next week and followup with his PCP a nd if his anemia trends down again, he should have another colonoscopy as outpatient, but the impres heri at this point is that the patient probably has intermittent diverticular bleeds as the cause of his iron- deficiency anemia. PHYSICAL EXAMINATION: Vital Signs: Temperature 98.4, heart rate is 77, respiratory rate is 20, oxy gen saturation 100% on 3 L nasal cannula, and blood pressure is 104/55. General: The patient is an elderly male, sitting up in a chair, in no acute distress. CVS: Normal S1, S2. Regular rate and rhythm. Chest: Breath sounds bilaterally decreased with no added sounds. Abdomen: Soft. Bowel isaiah nds are present. Neuro: He is alert and oriented x3. Able to move all 4 extremities. DIET: Heart-healthy, consistent-carb diet. ACTIVITIES: As tolerated. DISPOSITION: To home. STATUS WHILE IN THE HOSPITAL: Inpatient. Please keep in mind, this is a summarized version of this patient's hospital stay. If you need more information, please feel free to call me at or please obtain the full medical records . TIME SPENT: Approximately 45 minutes was spent to complete this discharge. [id number]/[facility] #: [id number]
== END 2016-11-24 17:21 | disposition home or self-care (01) | DRG 811 ==
LOC: ED 03:09 → MEDTELE 05:02
PROVIDERS: ADMIT Pediatrics; ATTEND Internal Medicine
PROC: 30233N1 Transfusion of Nonautologous Red Blood Cells into Peripheral Vein, Percutaneous Approach (ICD-10-PCS; principal; 2016-11-23)
DX: D62 Acute posthemorrhagic anemia (principal); K57.31 Diverticulosis of large intestine without perforation or abscess with bleeding; E11.51 Type 2 diabetes mellitus with diabetic peripheral angiopathy without gangrene; J44.9 Chronic obstructive pulmonary disease, unspecified; I10 Essential (primary) hypertension; K21.9 Gastro-esophageal reflux disease without esophagitis; Z79.4 Long term (current) use of insulin; Z79.899 Other long term (current) drug therapy; Z66 Do not resuscitate; Z87.891 Personal history of nicotine dependence
CPT/HCPCS: 36415; 71010; 74177; 74262; 78278; 80048; 80053; 83605; 83880; 84484; 85014; 85018; 85025; 85610; 85730; 86850; 86900; 86901; 86922; 87040; 87077; 87150; 87205; 93005; 93306; 94640; 94760; A9270-GY; A9512; A9538; J0456; J0696; J1940; J2930; P9040; Q9967